=== PATIENT | female | born 1945 | race Caucasian/White ===

== ENCOUNTER 2018-11-06 11:46 | Inpatient (IN) | payer MEDICARE, MEDICAID | END 2018-11-10 15:00 | disposition home or self-care (01) | LOC: PCU 3S 11-09 06:05 → ER 11:46 → PCU 3S 11-07 19:29 → ED HOLD 17:13 → PCU 3S 19:35 | PROC: 0DJ08ZZ Inspection of Upper Intestinal Tract, Via Natural or Artificial Opening Endoscopic (ICD-10-PCS; principal; ~2018-11-06) | PROC: 0DBM8ZX Excision of Descending Colon, Via Natural or Artificial Opening Endoscopic, Diagnostic (ICD-10-PCS; ~2018-11-06) | PROC: 0DBL8ZX Excision of Transverse Colon, Via Natural or Artificial Opening Endoscopic, Diagnostic (ICD-10-PCS; ~2018-11-06) | DX: K92.2 Gastrointestinal hemorrhage, unspecified (principal); I48.91 Unspecified atrial fibrillation; I50.9 Heart failure, unspecified; J44.9 Chronic obstructive pulmonary disease, unspecified ==

== ENCOUNTER 2018-11-17 12:05 | Inpatient (IN) | payer MEDICARE, MEDICAID | END 2018-11-20 16:48 | disposition home or self-care (01) | LOC: ER 12:05 → ED HOLD 14:12 → SUR 3N 17:22 | DX: I50.31 Acute diastolic (congestive) heart failure (principal); J44.1 Chronic obstructive pulmonary disease with (acute) exacerbation; J44.0 Chronic obstructive pulmonary disease with (acute) lower respiratory infection; E11.9 Type 2 diabetes mellitus without complications; D64.9 Anemia, unspecified; J20.9 Acute bronchitis, unspecified; I48.0 Paroxysmal atrial fibrillation; Z95.1 Presence of aortocoronary bypass graft; I25.10 Atherosclerotic heart disease of native coronary artery without angina pectoris; I11.0 Hypertensive heart disease with heart failure; E78.5 Hyperlipidemia, unspecified ==

== ENCOUNTER 2019-01-04 00:40 | Inpatient (IN) | payer MEDICARE, MEDICAID ==
[~2019-01-04] VITALS: Ht 162.6 cm; Wt 110.0 kg
[~2019-01-04 00:40] MED LIST: ACET-1008 PO; ALBU18HF2 INH; AMIO200T40 PO; ASPI-1130 PO; ATOR20TA66 PO; CEPH500C5 PO; DILT180C66 PO; FURO-150 PO; GABA-532 PO; INSU100C10 SQ; INSU100I31 SQ; LEVO100T PO; LEVO75TA7 PO; MONT10TA24 PO; NYST15PO4 TP; PANT-47 PO; POTA20TA19 PO
[2019-01-04] MEDS ORDERED: CefTRIAXone 2gm/D5W 50ml 50 ML IV ONE ×2 (00:50→01:35)
[2019-01-04 01:31] LABS: BASOPHILS # (AUTO) 0.1 X10'3 (0-0.2); BASOPHILS % (AUTO) 0.6 % (0-1); EOSINOPHILS % (AUTO) 0.2 % (0-6); HEMATOCRIT 35.4 % (35.0-45.0); HEMOGLOBIN 11.2 g/dl (12.0-16.0); LYMPHOCYTES # (AUTO) 0.3 X10'3 (1.1-4.8); LYMPHOCYTES % (AUTO) 3.2 % (21-51); MEAN CORPUSCULAR HEMOGLOBIN 26.9 PG (27.0-31.0); MEAN CORPUSCULAR HGB CONC 31.6 g/dL (33.0-36.5); MEAN CORPUSCULAR VOLUME 85.1 FL (78-98); MEAN PLATELET VOLUME 9.4 FL (7.4-10.4); MONOCYTES # (AUTO) 0.5 X10'3 (0-0.9); NEUTROPHILS # (AUTO) 8.2 X10'3 (1.8-7.7); PLATELET COUNT 163 X10'3 (140-440); RED BLOOD COUNT 4.16 X10'6 (4.20-5.60); RED CELL DISTRIBUTION WIDTH 24.6 % (11.5-14.5); WHITE BLOOD COUNT 9.1 X10'3 (4.5-11.0)
[2019-01-04] MEDS ORDERED: normal saline 1000ML IV soln IVB ONE (01:35)
[2019-01-04] MEDS ORDERED: vancomycin/NS 1 GM ADD-VANTAGE 250 ML IV ONE (01:35)
[2019-01-04] MEDS ORDERED: ipratropium/albuterol 3ml nebule NEB ONE (01:35)
[2019-01-04 01:39] LABS: ALANINE AMINOTRANSFERASE 28 U/L (12-78); ALBUMIN 3.2 G/DL (3.4-5.0); ALBUMIN/GLOBULIN RATIO 0.9 (1.1-1.5); ALKALINE PHOSPHATASE 97 IU/L (46-116); ANION GAP 5 (8-16); ASPARTATE AMINO TRANSFERASE 18 U/L (10-37); BILIRUBIN,TOTAL 0.8 MG/DL (0.1-1.0); BLOOD UREA NITROGEN 30 MG/DL (7-18); BUN/CREATININE RATIO 21.9 (6.6-38.0); CALCIUM 8.9 MG/DL (8.5-10.1); CHLORIDE 103 MMOL/L (99-107); CREATININE 1.37 MG/DL (0.40-0.90); GLUCOSE 319 MG/DL (70-104); MAGNESIUM 1.8 MG/DL (1.5-2.4); POTASSIUM 3.8 MMOL/L (3.5-5.1); SODIUM 142 MMOL/L (135-145); TOTAL CARBON DIOXIDE 33.7 MMOL/L (24-32); TOTAL PROTEIN 6.6 G/DL (6.4-8.2); eGFR 38 ML/MIN
[2019-01-04 02:01] LABS: ABG BASE EXCESS 7.6 mmol/L (-2.0-3.0); ABG HCO3 32.7 mmol/L (22.0-26.0); ABG OXYGEN SATURATION 86.5 % (95-98); ABG PCO2 (T) 52.7 mmHg (32.0-45.0); ABG PH (T) 7.418 (7.350-7.450); ABG PO2 (T) 61.3 mmHg (83-108); FCOHb 1.1 % (0.5-1.5); FLOW 2 L/min; FO2Hb 85.5 % (94-100); TOTAL HEMOGLOBIN 11.5 G/dl (12.0-16.0)
[2019-01-04 02:06] LABS: INR 1.1 INR; PARTIAL THROMBOPLASTIN TIME 25 SECONDS (22-32)
[2019-01-04 02:16] LABS: ACANTHOCYTES FEW; ANISOCYTOSIS 3+; ELLIPTOCYTES 1+; PLATELET ESTIMATE NORMAL
[2019-01-04 02:52] LABS: CLARITY,URINE SLIGHTLY CLOUDY (Clear); COLOR,URINE YELLOW (Yellow); GLUCOSE, URINE 500 mg/dl (Neg); KETONES,URINE NEGATIVE (Neg); LEUKOCYTE ESTERASE ,URINE NEGATIVE (Neg); NITRITES, URINE NEGATIVE (Neg); OCCULT BLOOD,URINE TRACE-INTACT (Neg); PROTEIN,URINE NEGATIVE (Neg); UROBILINOGEN,URINE 0.2 E.U/dL (0.2-1.0)
[2019-01-04] MEDS ORDERED: morphine 2 MG/ML inj. syringe IV PRN ×2 (02:55)
[2019-01-04] MEDS ORDERED: ondansetron/PF 4mg/2ml inj IV PRN (02:55)
[2019-01-04] MEDS ORDERED: mag hydrox/Alum hydrox/simeth 30ml oral suspension PO PRN (02:55)
[2019-01-04] MEDS ORDERED: HYDROcodone/acetaminophen 5mg/325mg tablet PO PRN (02:55)
[2019-01-04] MEDS ORDERED: magnesium hydroxide 30ml (MOM) UD suspension PO PRN ×2 (02:55→03:45)
[2019-01-04 02:57] LABS: UA COLLECTION TYPE CLN CATCH MIDSTREAM
[2019-01-04] MEDS ORDERED: MAGN400O6 PO (02:58)
[2019-01-04] MEDS ORDERED: NA P133E4 RC (02:58)
[2019-01-04] MEDS ORDERED: DEXT38GE12 PO (02:58)
[2019-01-04] MEDS ORDERED: POLY17PO10 PO (02:58)
[2019-01-04] MEDS ORDERED: MULT-1085 PO (02:58)
[2019-01-04] MEDS ORDERED: PRED5TAB PO (02:58)
[2019-01-04] MEDS ORDERED: GABA-532 PO ×2 (02:58)
[2019-01-04] MEDS ORDERED: DILT240C90 PO (02:58)
[2019-01-04] MEDS ORDERED: BISA10SU60 RC (02:58)
[2019-01-04] MEDS ORDERED: PANT-47 PO (02:58)
[2019-01-04] MEDS ORDERED: ACET-2119 PO (02:58)
[2019-01-04] MEDS ORDERED: OXYM30SP (02:58)
[2019-01-04] MEDS ORDERED: FERR325T28 PO (02:58)
[2019-01-04] MEDS ORDERED: GLUC1KIT IM (02:58)
[2019-01-04] MEDS ORDERED: CAYE450C (02:58)
[2019-01-04 02:59] LABS: BACTERIA,URINE FEW /HPF (Neg); CAL OXALATE CRYSTALS FEW /HPF (NEGATIVE); RBC,URINE 0-2 /HPF (0-2); SQUAMOUS EPITHELIAL CELL,UR FEW /LPF (FEW); WBC,URINE 0-4 /HPF (0-4)
[2019-01-04] MEDS ORDERED: vancomycin/NS 1 GM ADD-VANTAGE 250 ML X 1 DOSE IV ONE ×2 (03:15→04:30)
[2019-01-04] MEDS ORDERED: non-formulary drug (Na Phos,M-B/Na Phos,Di-Ba* (Fleet's Enema*) 1 BOTTLE) RC PRN (03:45)
[2019-01-04] MEDS ORDERED: MESSAGE TO PHARMACY PO ONE (03:50)
[2019-01-04] MEDS ORDERED: dextrose ORAL solution 15 GM/59 ML bottle PO PRN ×2 (03:50)
[2019-01-04] MEDS ORDERED: dextrose 50%-water 50ml dispensing syringe IV PRN ×2 (03:50)
[2019-01-04] MEDS ORDERED: glucagon, human recombinant 1mg kit SUBCUT PRN (03:50)
--- NOTE | 2019-01-04 04:00 | NUR ---
Received report from ER nurse. Patient brought to room and admitted to floor. Pictures taken and Brooklyn noel.
[2019-01-04 05:00] VITALS: BP 134/74
--- NOTE | 2019-01-04 06:00 | NUR ---
reviewed and agree with SRN assessment.
[2019-01-04] MEDS: levoTHYROXINE 75mcg tablet PO SCH (06:30)
[2019-01-04] MEDS ORDERED: insulin glargine (Lantus) pen - multi-dose SQ SCH (08:00)
[2019-01-04] MEDS ORDERED: vancomycin/NS 1 GM ADD-VANTAGE 250 ML IV SCH (08:00)
--- NOTE | 2019-01-04 08:20 | NUR ---
Pt states she took Thyroid medication yesterday and it is "not due" today.
--- NOTE | 2019-01-04 08:20 | NUR ---
Entered pts room to find pt sitting alongside bed. 3-4+ bilateral edema from knees down to toes. Extremely SOB. RR 32. Oxygen on @ 5L/NC. RT in hallway. Requested assistance from RT to assist with pt. RT increased pt's 02 to 16L. Pt extremely SOB. B/p @ 188/112. Temp 99.3. Pulse 98. Pt assisted to lying position in bed with HOB elevated. Pt has bilateral wheezes with crackles throughout lung figueroa. Administered Lasix and Solu-medrol per MD Orders. Pt has NS infusing at 100ml/hr. Decreased NS to 10 ml/hr. (0830) Temp 99.3 HR 98 RR 20 & BP 188/100. 1:1 monitoring. Pt continues to be extremely sob. Dr. Gan notified by Pee Torres RN of respiratory difficulty. Dr. Gan ordered ABG's and CXR stat. Continued 1:1 monitoring. (0845) P.O. 94% on 16 liters 02. HR 107 Temp 99.8. BP 180/102. (0900) Pt feeling slightly better after administration of Lasix and Solumedrol. BP 176/92 Temp 101.9 HR 93 P.O. 92% on 16L. (0915) BP 149/77 HR 105 P.O. 95% on 16L 02. RT decreased 02 to 14L at 0930. (0930) 146/78. HR 97. Tylenol 2 tabs given po at this time. 93% on 14L 02. SOB improving at this time. Pt able to speak words. Attempted to call pts son to report change of condition per pts request. No anwer at this time. (10:00) P.O. 93%. Decreased to 12 liters 02 by RT. Pt improving. Speaking at normal tone with improved breathing status. (1015) P.O. 92% on 12L 02. Temp 99.8. BP 117/46. HR 118. Pt much improved status. Decreased wheezing & crackles at this time. Waiting for transfer to PCU. (1345) 98.3 94% on 12L 02. HR 101 & BP 106/57. Called report to Mendez on PCU. Waited for assistance to transfer pt to [facility] with 02 tank. Transfer completed at 1445. Mendez present and updated on vital signs and insulin coverage.
[2019-01-04] MEDS: methylPREDNISolone sod succ 125mg/2ml vial IV SCH ×3 (08:22→23:51)
[2019-01-04] MEDS: furosemide 40mg/4ml inj IV SCH ×2 (08:22→19:37)
[2019-01-04] MEDS: diltiazem CD 120mg capsule (once-daily) PO SCH (08:41)
[2019-01-04] MEDS: amiodarone 200mg tablet PO SCH (08:41)
[2019-01-04] MEDS: montelukast 10mg tablet PO SCH (08:42)
[2019-01-04] MEDS: nystatin 15 GM powder TP SCH ×3 (08:49→21:29)
[2019-01-04] MEDS: potassium Cl 20 mEq SR tablet PO SCH (08:50)
[2019-01-04] MEDS: pantoprazole 40mg Tablet.DR PO SCH (08:52)
[2019-01-04] MEDS: ferrous sulfate 325mg tablet PO SCH (08:52)
[2019-01-04] MEDS: gabapentin 300mg capsule PO SCH ×3 (08:52→21:29)
[2019-01-04] MEDS: aspirin 81mg tablet.DR PO SCH (08:52)
[2019-01-04] MEDS: atorvastatin 20mg tablet PO SCH (08:52)
[2019-01-04] MEDS: enoxaparin 40mg/0.4ml syringe SUBCUT SCH (08:53)
[2019-01-04 09:21] LABS: ABG BASE EXCESS 5.7 mmol/L (-2.0-3.0); ABG HCO3 31.5 mmol/L (22.0-26.0); ABG OXYGEN SATURATION 92.2 % (95-98); ABG PCO2 (T) 51.5 mmHg (32.0-45.0); ABG PH (T) 7.404 (7.350-7.450); ABG PO2 (T) 67.1 mmHg (83-108); ALLEN'S TEST Positive; FCOHb 0.5 % (0.5-1.5); FLOW 16 L/min; FMetHb 0.3 % (0.3-1.12); FO2Hb 91.5 % (94-100); TOTAL HEMOGLOBIN 11.1 G/dl (12.0-16.0)
[2019-01-04] MEDS: insulin Lispro (HumaLOG) vial - multi-dose SQ SCH ×3 (09:22→21:44)
[2019-01-04] MEDS: acetaminophen 325mg tablet PO PRN (09:29)
--- NOTE | 2019-01-04 13:31 | NUR ---
Patient in room ORTHO 4021. I have received report from Kayla CARR and had the opportunity to ask questions and assume patient care.
--- NOTE | 2019-01-04 14:43 | NUR ---
DM Consult: Pt admit w/ COPD exacerbation, PNA; hx T2DM A1C 8.3 down from prior 9.8. Pt unable to wake during RD visit; written DM ed w/ RD contact information left at bedside. Pt PO 50% avg first meal today. GLU 312 on solumedrol and hyperglycemia protocol. [facility] 01/03. Will continue to monitor. Rec: 1. continue carb controlled diet 2. monitor for ONS needs 3. wt per rx Addendum: 01/04/19 at [address] Amended: Links added.
--- NOTE | 2019-01-04 14:49 | NUR ---
Patient arrived to PCU.
[2019-01-04 15:00] VITALS: BP 111/43
--- NOTE | 2019-01-04 16:48 | NUR ---
Paged Dr. Gan PAGER ID: [phone] MESSAGE: Reinaldo CARR [phone] Fatimah Patel: Pt has Cayenne Pepper supplement in possession. Contains 337.5 mg Cayenne Fruit & 112.5 mg Lara Root per capsule. Pt states she takes 1 capsule w/ each meal. Any objections? Thank you.
[2019-01-04 18:00] VITALS: BP_SYST 118; BP_SYST 140; BP_DIAS 77; BP_DIAS 9
--- NOTE | 2019-01-04 18:11 | NUR ---
Problems reprioritized. Patient report given, questions answered & plan of care reviewed with Lindsey CARR.
--- NOTE | 2019-01-04 18:30 | NUR ---
Patient in room PCU 3014. I have received report from Reinaldo [place] and had the opportunity to ask questions and assume patient care.
[2019-01-04] MEDS ORDERED: vancomycin inj 1,250 MG in NS 250ml IV soln IV SCH (20:00)
[2019-01-04] MEDS: CefTRIAXone/D5W-Rocephin 1gm 50 ML IV SCH (21:29)
[2019-01-04] MEDS: insulin glargine (Lantus) pen - multi-dose SQ SCH (21:46)
[2019-01-04 22:00] VITALS: BP 118/57
[2019-01-05] VITALS (8 sets, daily range): BP systolic 98–138; BP diastolic 41–82
[2019-01-05] MEDS: acetaminophen 325mg tablet PO PRN (04:49)
--- NOTE | 2019-01-05 06:10 | NUR ---
Patient in room PCU 3014. I have received report from Lindsey CARR and had the opportunity to ask questions and assume patient care.
--- NOTE | 2019-01-05 06:23 | NUR ---
Problems reprioritized. Patient report given, questions answered & plan of care reviewed with marie CARR.
[2019-01-05 06:37] LABS: ALBUMIN 2.6 G/DL (3.4-5.0); ANION GAP 3 (8-16); BLOOD UREA NITROGEN 27 MG/DL (7-18); CALCIUM 8.9 MG/DL (8.5-10.1); CHLORIDE 105 MMOL/L (99-107); GLUCOSE 259 MG/DL (70-104); POTASSIUM 3.5 MMOL/L (3.5-5.1); SODIUM 141 MMOL/L (135-145); TOTAL CARBON DIOXIDE 32.6 MMOL/L (24-32); eGFR 54 ML/MIN
[2019-01-05 06:38] LABS: BASOPHILS % (AUTO) 0 % (0-1); EOSINOPHILS % (AUTO) 0 % (0-6); HEMATOCRIT 33.6 % (35.0-45.0); HEMOGLOBIN 10.6 g/dl (12.0-16.0); LYMPHOCYTES # (AUTO) 0.2 X10'3 (1.1-4.8); MEAN CORPUSCULAR HEMOGLOBIN 26.9 PG (27.0-31.0); MEAN CORPUSCULAR HGB CONC 31.5 g/dL (33.0-36.5); MEAN CORPUSCULAR VOLUME 85.4 FL (78-98); MEAN PLATELET VOLUME 9.8 FL (7.4-10.4); MONOCYTES # (AUTO) 0.2 X10'3 (0-0.9); MONOCYTES % (AUTO) 2.4 % (2-12); NEUTROPHILS # (AUTO) 7.5 X10'3 (1.8-7.7); NEUTROPHILS % (AUTO) 95.6 % (42-75); PLATELET COUNT 125 X10'3 (140-440); RED BLOOD COUNT 3.93 X10'6 (4.20-5.60); RED CELL DISTRIBUTION WIDTH 24.7 % (11.5-14.5); WHITE BLOOD COUNT 7.8 X10'3 (4.5-11.0)
[2019-01-05] MEDS: furosemide 40mg/4ml inj IV SCH ×2 (07:15→19:40)
[2019-01-05] MEDS: methylPREDNISolone sod succ 125mg/2ml vial IV SCH ×2 (07:15→16:48)
[2019-01-05] MEDS: diltiazem CD 120mg capsule (once-daily) PO SCH (07:45)
[2019-01-05] MEDS: ferrous sulfate 325mg tablet PO SCH (07:45)
[2019-01-05] MEDS: gabapentin 300mg capsule PO SCH ×3 (07:45→21:36)
[2019-01-05] MEDS: montelukast 10mg tablet PO SCH (07:46)
[2019-01-05] MEDS: pantoprazole 40mg Tablet.DR PO SCH (07:46)
[2019-01-05] MEDS: atorvastatin 20mg tablet PO SCH (07:46)
[2019-01-05] MEDS: amiodarone 200mg tablet PO SCH (07:46)
[2019-01-05] MEDS: aspirin 81mg tablet.DR PO SCH (07:46)
[2019-01-05] MEDS: potassium Cl 20 mEq SR tablet PO SCH (07:47)
[2019-01-05] MEDS: enoxaparin 40mg/0.4ml syringe SUBCUT SCH (07:47)
[2019-01-05 07:51] LABS: ANISOCYTOSIS 3+; PLATELET ESTIMATE DECREASED; SCHISTOCYTES 1+
[2019-01-05 07:52] LABS: MICROCYTOSIS 1+; POIKILOCYTOSIS 1+; POLYCHROMASIA 1+
[2019-01-05 07:53] LABS: ELLIPTOCYTES FEW
[2019-01-05] MEDS: nystatin 15 GM powder TP SCH ×3 (08:00→21:37)
[2019-01-05] MEDS: insulin Lispro (HumaLOG) vial - multi-dose SQ SCH ×3 (09:26→19:53)
--- NOTE | 2019-01-05 14:55 | NUR ---
Received report and patient. Page to Dr. Gan MESSAGE: [phone] Fatimah Patel I please get a PT Eval for patient, she was in daily PT prior to admission. Argenis [phone] Addendum: 01/05/19 at 1702 by Argenis Rock RN orders received
[2019-01-05] MEDS: vancomycin inj 1,250 MG in NS 250ml IV soln IV SCH (16:48)
--- NOTE | 2019-01-05 17:34 | NUR ---
Student documentation: I have reviewed and agree with all interventions, assessments performed and documented by Jackson Crowell RN.
--- NOTE | 2019-01-05 18:34 | NUR ---
Report to Rosibel CARR
[2019-01-05] MEDS ORDERED: ipratropium/albuterol 3ml nebule NEB PRN (20:15)
[2019-01-05] MEDS: CefTRIAXone/D5W-Rocephin 1gm 50 ML IV SCH (21:37)
[2019-01-05] MEDS: insulin glargine (Lantus) pen - multi-dose SQ SCH (21:42)
[2019-01-06] MEDS: methylPREDNISolone sod succ 125mg/2ml vial IV SCH ×2 (00:07→08:25)
[2019-01-06] MEDS: acetaminophen 325mg tablet PO PRN (00:07)
[2019-01-06] MEDS ORDERED: VANCOMYCIN LEVEL IV NR (03:30)
[2019-01-06] MEDS: levoTHYROXINE 75mcg tablet PO SCH (03:45)
[2019-01-06] MEDS: vancomycin inj 1,250 MG in NS 250ml IV soln IV SCH (04:34)
[2019-01-06 04:37] LABS: BASOPHILS % (AUTO) 0.2 % (0-1); EOSINOPHILS % (AUTO) 0 % (0-6); HEMOGLOBIN 10.6 g/dl (12.0-16.0); LYMPHOCYTES # (AUTO) 0.1 X10'3 (1.1-4.8); LYMPHOCYTES % (AUTO) 1.4 % (21-51); MEAN CORPUSCULAR HEMOGLOBIN 27.8 PG (27.0-31.0); MEAN CORPUSCULAR HGB CONC 33.1 g/dL (33.0-36.5); MEAN CORPUSCULAR VOLUME 84.2 FL (78-98); MEAN PLATELET VOLUME 9.7 FL (7.4-10.4); MONOCYTES # (AUTO) 0.2 X10'3 (0-0.9); NEUTROPHILS # (AUTO) 10.1 X10'3 (1.8-7.7); NEUTROPHILS % (AUTO) 96.4 % (42-75); PLATELET COUNT 132 X10'3 (140-440); RED CELL DISTRIBUTION WIDTH 24.4 % (11.5-14.5); WHITE BLOOD COUNT 10.5 X10'3 (4.5-11.0)
[2019-01-06 04:48] LABS: ALBUMIN 2.6 G/DL (3.4-5.0); ANION GAP 5 (8-16); BLOOD UREA NITROGEN 36 MG/DL (7-18); BUN/CREATININE RATIO 26.9 (6.6-38.0); CHLORIDE 104 MMOL/L (99-107); CREATININE 1.34 MG/DL (0.40-0.90); GLUCOSE 155 MG/DL (70-104); POTASSIUM 3.7 MMOL/L (3.5-5.1); SODIUM 142 MMOL/L (135-145); TOTAL CARBON DIOXIDE 32.8 MMOL/L (24-32); eGFR 39 ML/MIN
[2019-01-06 04:49] LABS: VANCOMYCIN,TROUGH 21.9 UG/ML (6.0-14.0)
--- NOTE | 2019-01-06 04:50 | NUR ---
vanco trough 21.9. pharmacist notified, current dose to be given and the next dose will be decreased.
[2019-01-06 06:00] VITALS: BP_SYST 110; BP_SYST 117; BP_DIAS 59; BP_DIAS 64
[2019-01-06 06:11] LABS: ANISOCYTOSIS 3+; ELLIPTOCYTES 1+; PLATELET ESTIMATE DECREASED; POIKILOCYTOSIS 1+
[2019-01-06 06:12] LABS: SCHISTOCYTES FEW
[2019-01-06 06:13] LABS: POLYCHROMASIA FEW
[2019-01-06] MEDS: gabapentin 300mg capsule PO SCH (08:26)
[2019-01-06] MEDS: potassium Cl 20 mEq SR tablet PO SCH (08:26)
[2019-01-06] MEDS: montelukast 10mg tablet PO SCH (08:26)
[2019-01-06] MEDS: ferrous sulfate 325mg tablet PO SCH (08:26)
[2019-01-06] MEDS: aspirin 81mg tablet.DR PO SCH (08:26)
[2019-01-06] MEDS: pantoprazole 40mg Tablet.DR PO SCH (08:26)
[2019-01-06] MEDS: furosemide 40mg/4ml inj IV SCH (08:26)
[2019-01-06] MEDS: amiodarone 200mg tablet PO SCH (08:27)
[2019-01-06] MEDS: atorvastatin 20mg tablet PO SCH (08:27)
[2019-01-06] MEDS: diltiazem CD 120mg capsule (once-daily) PO SCH (08:27)
[2019-01-06] MEDS: enoxaparin 40mg/0.4ml syringe SUBCUT SCH (08:29)
[2019-01-06] MEDS: nystatin 15 GM powder TP SCH ×2 (08:29→13:27)
[2019-01-06] MEDS: insulin Lispro (HumaLOG) vial - multi-dose SQ SCH (09:12)
--- NOTE | 2019-01-06 13:30 | NUR ---
Sitting in chair at bedside: pt O2 titrated down to 6L @ aprox 1030 95 NC. SOB w/exertion/SBA using walker from bed to toilet about 10 feet. [employer] 1300/after lunch Pt titrated down to 5L O2 92 sitting on edge of bed. Pt denies SOB, resp distress, CP, dizziness,
[2019-01-06] MEDS ORDERED: vancomycin/NS 1 GM ADD-VANTAGE 250 ML IV SCH (16:00)
[2019-01-08] MEDS ORDERED: VANCOMYCIN LEVEL IV ONE (03:30)
[2019-01-08] MEDS ORDERED: VANCOMYCIN LEVEL IV NR (03:30)
== END 2019-01-06 15:30 | DRG 871 ==
LOC: ER 00:42 → ORTHO 4S 04:14 → CMPBEDREQ 04:37 → PCU 3S 14:45 → ORTHO 4S 01-05 14:20
PROVIDERS: ADMIT Internal Medicine; ATTEND Family Medicine
DX: A41.9 Sepsis, unspecified organism (principal); J18.9 Pneumonia, unspecified organism; J96.01 Acute respiratory failure with hypoxia; J96.02 Acute respiratory failure with hypercapnia; I50.33 Acute on chronic diastolic (congestive) heart failure; J44.1 Chronic obstructive pulmonary disease with (acute) exacerbation; Z68.41 Body mass index [BMI] 40.0-44.9, adult; J44.0 Chronic obstructive pulmonary disease with (acute) lower respiratory infection; N17.9 Acute kidney failure, unspecified; Y95 Nosocomial condition; E66.01 Morbid (severe) obesity due to excess calories; E03.9 Hypothyroidism, unspecified; E11.40 Type 2 diabetes mellitus with diabetic neuropathy, unspecified; E78.5 Hyperlipidemia, unspecified; I11.0 Hypertensive heart disease with heart failure; I25.10 Atherosclerotic heart disease of native coronary artery without angina pectoris; I48.0 Paroxysmal atrial fibrillation; I25.2 Old myocardial infarction; Z95.1 Presence of aortocoronary bypass graft; Z90.49 Acquired absence of other specified parts of digestive tract; Z88.8 Allergy status to other drugs, medicaments and biological substances; Z79.82 Long term (current) use of aspirin; Z79.4 Long term (current) use of insulin; Z79.890 Hormone replacement therapy; Z86.73 Personal history of transient ischemic attack (TIA), and cerebral infarction without residual deficits; Z82.3 Family history of stroke
CPT/HCPCS: 36415; 36600; 71045; 80048; 80053; 80202; 81001; 82803; 82948; 83036; 83605; 83735; 83880; 84145; 85018; 85025; 85610; 85730; 87040; 87070; 93005; 93306; 94640; 94760; 96365; 96367; 97110; 97116; 97162; 99291; G0378; J0696; J1650; J1815; J1940; J2930; J3370; J7030